=== PATIENT | female | born 1980 | race American Indian/Alaskan Native ===

== ENCOUNTER 2022-03-11 02:44 | Emergency (ER) | payer SELFPAY ==
[2022-03-11 02:57] VITALS: BP 133/79
== END 2022-03-11 08:00 | disposition left against medical advice (07) ==
LOC: ED 02:44
DX: R51.9 Headache, unspecified (principal); Z53.21 Procedure and treatment not carried out due to patient leaving prior to being seen by health care provider; V89.2XXA Person injured in unspecified motor-vehicle accident, traffic, initial encounter; Y93.89 Activity, other specified; Y92.89 Other specified places as the place of occurrence of the external cause; Y99.8 Other external cause status